=== PATIENT | male | born 1985 | race Caucasian/White ===

== ENCOUNTER 2017-08-11 14:37 | Emergency (ER) | payer OTHER ==
[~2017-08-11] VITALS: Ht 182.9 cm; Wt 100.0 kg
[~2017-08-11 14:37] MED LIST: IBUP800T23 PO; TRAM50 PO; Z.0.NO CURRENT MEDS
[2017-08-11 14:56] VITALS: BP 128/66; PULSE 85; RESP 16; TEMP 99.3; O2SAT 95
[2017-08-11] MEDS ORDERED: ACETAMINOPHEN/HYDROcodone 325 MG/5 MG TAB PO ONE (15:45)
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
[2017-08-11] MEDS ORDERED: IBUP1TAB7 PO (16:41)
[2017-08-11] MEDS ORDERED: CYCL10TA PO (16:41)
== END 2017-08-11 17:00 | disposition home or self-care (01) ==
LOC: PHEFT 14:37
DX: S63.502A Unspecified sprain of left wrist, initial encounter (principal); S20.211A Contusion of right front wall of thorax, initial encounter; V49.49XA Driver injured in collision with other motor vehicles in traffic accident, initial encounter; Y99.0 Civilian activity done for income or pay; Z72.0 Tobacco use
CPT/HCPCS: 71045; 73110; 99284; L3908